=== PATIENT | female | born 2000 | race African-American/Black ===

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

== ENCOUNTER 2021-01-06 11:52 | Emergency (ER) | payer OTHER ==
[2021-01-06] MEDS ORDERED: Clindamycin 150 MG CAP ONE (12:18)
== END 2021-01-06 12:23 | disposition home or self-care (01) ==
LOC: BURERS 11:52
DX: K61.0 Anal abscess (principal)
CPT/HCPCS: 99282

== ENCOUNTER 2021-02-25 22:42 | Emergency (ER) | payer OTHER ==
[2021-02-26 16:52] LABS: SARS-CoV-2 PCR by NAA Not Detected (NotDetected)
== END 2021-02-25 23:06 | disposition home or self-care (01) ==
LOC: BURERS 22:42
DX: J06.9 Acute upper respiratory infection, unspecified (principal); Z20.822 Contact with and (suspected) exposure to COVID-19
CPT/HCPCS: 99283; U0003; U0005

== ENCOUNTER 2021-06-02 22:52 | Emergency (ER) | payer OTHER ==
[2021-06-02] MEDS ORDERED: Lidocaine 2% w/Epinephrine 1:200K 20 ML VIAL ONE (23:38)
== END 2021-06-03 00:30 | disposition home or self-care (01) ==
LOC: BURERS 22:52
DX: L05.01 Pilonidal cyst with abscess (principal)

== ENCOUNTER 2021-08-24 08:10 | Emergency (ER) | payer OTHER ==
[2021-08-24] MEDS ORDERED: Doxycycline 100 MG CAP ONE (08:46)
[2021-08-24] MEDS ORDERED: Lidocaine 1% w/Epinephrine 1:100K 20 ML VIAL ONE (08:46)
[2021-08-24] MEDS ORDERED: HYDROcodone/Acetaminophen 5/325 mg Tablet ONE (08:51)
== END 2021-08-24 09:09 | disposition home or self-care (01) ==
LOC: BURERS 08:10
DX: L05.01 Pilonidal cyst with abscess (principal)
CPT/HCPCS: 10080

== ENCOUNTER 2023-09-11 09:25 | Emergency (ER) | payer MEDICAID, SELFPAY ==
[2023-09-11] MEDS ORDERED: predniSONE 20 MG TAB ONE (10:09)
== END 2023-09-11 10:12 | disposition home or self-care (01) ==
LOC: BURERS 09:25
DX: J06.9 Acute upper respiratory infection, unspecified (principal); F17.290 Nicotine dependence, other tobacco product, uncomplicated
CPT/HCPCS: 99283; J7512